=== PATIENT | female | born 2000 ===

== ENCOUNTER → 2023-06-04 | Outpatient (CLI) | payer BC ==
[~2023-06-04] MED LIST: BENADRYL; CODACEE120 PO; NEOPOLHCSU AD; SULTRIEL PO
[2023-06-06 07:10] LABS: HSV-1 DNA Negative (Negative); HSV-2 DNA Positive (Negative)
== END ==
LOC: LAB 11:25 → LAB SHORT 11:25
PROVIDERS: Advanced Practice Midwife
DX: Z01.419 Encounter for gynecological examination (general) (routine) without abnormal findings (principal); Z11.3 Encounter for screening for infections with a predominantly sexual mode of transmission
CPT/HCPCS: 87529; G0145